=== PATIENT | male | born 1960 | race Caucasian/White ===

== ENCOUNTER → 2020-09-14 10:39 | Outpatient (CLI) | payer OTHER, SELFPAY ==
--- NOTE | 2020-09-14 | DI.RAD.S_ITS ---
PROCEDURE: XR THORACIC SPINE 3V INDICATIONS: Thoracogenic scoliosis, thoracic region TECHNIQUE: 3 views of the thoracic spine were acquired. COMPARISON: None. FINDINGS: Bones: No fracture. Multilevel degenerative endplate sclerosis and spurring. Diffuse facet arthropathy. Soft tissues: No paravertebral stripe thickening. IMPRESSION: Diffuse discogenic changes. Dictated by: Jonah Gandhi M.D. on 09/14/2020 at 11:46 Approved by: Jonah Gandhi M.D. on 09/14/2020 at 11:49
== END ==
PROVIDERS: Family Provider Family Medicine; Referring Provider Family Medicine; Visit Provider Family Medicine
DX: R07.81 Pleurodynia (principal); M41.34 Thoracogenic scoliosis, thoracic region; M47.814 Spondylosis without myelopathy or radiculopathy, thoracic region
CPT/HCPCS: 72072

== ENCOUNTER → 2021-04-10 14:39 | Outpatient (CLI) | payer OTHER, SELFPAY ==
--- NOTE | 2021-04-10 14:40 | DI.NM.S_ITS ---
PROCEDURE: NM EXERCISE TREADMILL NON NUC COMPARISON: None. INDICATIONS: Patient with hypertension, concerns regarding previous abnor FINDINGS: The patient exercised for 7 minutes and 51 seconds, reaching 7.8 METs, MARZENA +11%. 88% of maximum predicted heart rate reached. Appropriate HR and BP response to exercise. No angina symptoms. No ST changes with exercise or during recovery. IMPRESSION: Low risk, normal treadmill ECG only stress test with mildly reduced exercise tolerance (MARZENA +11%) and no angina symptoms. Target heart rate achieved. Dictated by: Onesimo Soto MD on 04/11/2021 at 16:05 Approved by: Onesimo Soto MD on 04/11/2021 at 16:06
[2021-04-10 15:33] LABS: COVID19 -Nasal RAPID Negative (Negative)
== END ==
PROVIDERS: Family Provider Family Medicine; PCP Family Medicine; Referring Provider Family Medicine; Visit Provider Internal Medicine
DX: I11.0 Hypertensive heart disease with heart failure (principal); I10 Essential (primary) hypertension
CPT/HCPCS: 87635; 93017

== ENCOUNTER → 2021-11-29 09:25 | Outpatient (CLI) | payer OTHER, SELFPAY ==
[2021-11-29 18:26] LABS: Add Manual Diff / Slide Review NO; Basophils Absolute Auto 0 /uL (0-100); Basophils Percent Auto 0.7 % (0-2); Eosinophils Absolute Auto 300 /uL (0-450); Eosinophils Percent Auto 4.8 % (2-4); Hematocrit 46.3 % (41-53); Hemoglobin 16.1 g/dL (13.5-17.5); Lymphocytes Absolute Auto 1900 /uL (1100-4500); Lymphocytes Percent Auto 29.6 % (25-40); Mean Corpuscular HGB Conc 34.7 % (30-36); Mean Corpuscular Hemoglobin 31.5 PG (26-34); Mean Corpuscular Volume 90.7 fL (80-100); Monocytes Absolute Auto 600 /uL (0-900); Monocytes Percent Auto 9.8 % (3-14); Neutrophils Absolute Auto 3500 /uL (1500-7000); Neutrophils Percent Auto 55.1 % (50-75); Platelet Count 159 X10^3/uL (150-400); White Blood Cell Count 6.4 X10^3/uL (4.5-11.0)
[2021-11-29 18:34] LABS: Alanine Aminotransferase 20 IU/L (<50); Albumin 4.4 g/dL (3.5-5.0); Albumin Globulin Ratio 1.6 (1.0-2.8); Alkaline Phosphatase 60 U/L (38-126); Aspartate Aminotransferase 28 IU/L (17-59); BUN Creatinine Ratio 19.2 (6-22); Blood Urea Nitrogen 20 mg/dL (9-20); Calcium 9.1 mg/dL (8.4-10.2); Carbon Dioxide 30 mmol/L (22-32); Chloride 102 mmol/L (98-107); Cholesterol 223 mg/dL (140-199); Estimated Glomerular Filt Rate > 60 mL/min (>60); Globulin 2.7 g/dL (1.7-4.1); Glucose 100 mg/dL (70-100); HDL Cholesterol 73 mg/dL (40-60); HEMOLYSIS < 15 (0-50); LDL Cholesterol Calculated 120 mg/dL (<100); Sodium 137 mmol/L (137-145); Total Protein 7.1 g/dL (6.3-8.2); Triglycerides 148 mg/dL (35-150)
[2021-11-29 18:39] LABS: Potassium 5.4 mmol/L (3.4-5.1)
[2021-11-29 19:00] LABS: Prostate Specific Antigen Scrn 0.964 ng/mL (0.1-4.0)
== END ==
PROVIDERS: Family Provider Family Medicine; PCP Family Medicine; Visit Provider Family Medicine
DX: G62.9 Polyneuropathy, unspecified (principal); I10 Essential (primary) hypertension; Z12.5 Encounter for screening for malignant neoplasm of prostate
CPT/HCPCS: 80053; 80061; 85025; G0103

== ENCOUNTER → 2023-10-01 08:35 | Outpatient (CLI) | payer OTHER, SELFPAY ==
[2023-10-01 09:45] LABS: Add Manual Diff / Slide Review NO; Basophils Absolute Auto 100 /uL (0-100); Basophils Percent Auto 1.1 % (0-2); Eosinophils Absolute Auto 300 /uL (0-450); Eosinophils Percent Auto 5.2 % (2-4); Hematocrit 46.3 % (41-53); Hemoglobin 15.8 g/dL (13.5-17.5); Lymphocytes Absolute Auto 2200 /uL (1100-4500); Mean Corpuscular HGB Conc 34.2 % (30-36); Mean Corpuscular Hemoglobin 31.7 PG (26-34); Mean Corpuscular Volume 92.9 fL (80-100); Monocytes Absolute Auto 700 /uL (0-900); Monocytes Percent Auto 10.7 % (3-14); Neutrophils Absolute Auto 3300 /uL (1500-7000); Platelet Count 173 X10^3/uL (150-400); Red Blood Cell Count 4.98 X10^6/uL (4.5-5.9); Red Cell Distribution Width 13.5 % (11.6-14.8); White Blood Cell Count 6.6 X10^3/uL (4.5-11.0)
[2023-10-01 10:13] LABS: HEMOLYSIS < 15 (0-50)
[2023-10-01 10:25] LABS: Alanine Aminotransferase 28 IU/L (<50); Albumin 4.1 g/dL (3.5-5.0); Albumin Globulin Ratio 1.6 (1.0-2.8); Alkaline Phosphatase 55 U/L (38-126); Amylase 65 U/L (30-110); Aspartate Aminotransferase 26 IU/L (17-59); BUN Creatinine Ratio 14.5 (6-22); Bilirubin Total 1.1 mg/dL (0.2-1.3); Blood Urea Nitrogen 16 mg/dL (9-20); Calcium 9.5 mg/dL (8.4-10.2); Carbon Dioxide 31 mmol/L (22-32); Chloride 107 mmol/L (98-107); Estimated Glomerular Filt Rate > 60 mL/min (>60); Globulin 2.5 g/dL (1.7-4.1); Glucose 83 mg/dL (80-110); Lipase 174 U/L (23-300); Potassium 4.5 mmol/L (3.4-5.1); Sodium 141 mmol/L (137-145); Total Protein 6.6 g/dL (6.3-8.2)
[2023-10-01 11:25] LABS: Prostate Specific Antigen Scrn 0.989 ng/mL (0.1-4.0)
[2023-10-01 22:50] LABS: Hep C Virus Ab w/Reflex Quant NEGATIVE s/c (NEGATIVE)
== END ==
PROVIDERS: Family Provider Family Medicine; PCP Physician Assistant Medical; Referring Provider Physician Assistant; Visit Provider Physician Assistant
DX: Z12.5 Encounter for screening for malignant neoplasm of prostate (principal); Z11.59 Encounter for screening for other viral diseases; R10.11 Right upper quadrant pain; R10.13 Epigastric pain; K21.00 Gastro-esophageal reflux disease with esophagitis, without bleeding; R14.0 Abdominal distension (gaseous)
CPT/HCPCS: 36415; 80053; 82150; 83690; 85025; 86803; G0103

== ENCOUNTER → 2023-10-12 11:24 | Outpatient (CLI) | payer OTHER, SELFPAY ==
--- NOTE | 2023-10-12 11:27 | DI.CT.S_ITS ---
PROCEDURE: CT ABDOMEN PELVIS W CON INDICATIONS: abdominal pain and bloating TECHNIQUE: After the administration of intravenous contrast, axial sections acquired from the lung bases to the pubic symphysis. Coronal and sagittal reformats were performed. For radiation dose reduction, the following was used: automated exposure control, adjustment of mA and/or kV according to patient size. COMPARISON: None. FINDINGS: Image quality: Diagnostic. Lower Chest: Right lower lung granuloma. No pleural effusions. Heart size within normal limits. ABDOMEN: Liver: No solid mass. Gallbladder: Contracted. Biliary ducts: No biliary dilation. Pancreas: No ductal dilation. Spleen: Size is within normal limits. Adrenal Glands: No adrenal nodules. Kidneys and Ureters: Symmetric enhancement. No nephrolithiasis or hydronephrosis. No hydroureter. Stomach and Bowel: Stomach and small bowel loops are normal caliber. Normal appendix. Normal quantity of colonic stool. No suspicious colon wall thickening or inflammation. No suspicious wall thickening or bowel obstruction. Peritoneum: No abnormal intraperitoneal fluid. No free air. Ventral Wall: No significant ventral hernia. Abdominal Nodes: No retroperitoneal or mesenteric adenopathy by size criteria. Vessels: Aorta and inferior vena cava are normal in size. PELVIS: Pelvic Organs: Unremarkable. Bladder: No bladder wall thickening, accounting for underdistention. Pelvic Nodes: No enlarged lymph nodes. Miscellaneous: No inguinal hernias are seen. Bones: No aggressive osseous abnormality. IMPRESSION: No acute process. Dictated by: Ginger Quach M.D. on 10/12/2023 at 14:40 Approved by: Ginger Quach M.D. on 10/12/2023 at 14:45
== END ==
LOC: CT 11:25
PROVIDERS: Family Provider Family Medicine; PCP Physician Assistant Medical; Referring Provider Physician Assistant; Visit Provider Physician Assistant
DX: R14.0 Abdominal distension (gaseous) (principal); R10.13 Epigastric pain; R10.11 Right upper quadrant pain; R19.8 Other specified symptoms and signs involving the digestive system and abdomen
CPT/HCPCS: 74177; Q9967

== ENCOUNTER → 2023-12-15 09:37 | Outpatient (CLI) | payer OTHER, SELFPAY ==
[2023-12-15 19:11] LABS: Add Manual Diff / Slide Review NO; Basophils Absolute Auto 0 /uL (0-100); Basophils Percent Auto 0.8 % (0-2); Eosinophils Absolute Auto 300 /uL (0-450); Eosinophils Percent Auto 5.4 % (2-4); Hemoglobin 16.3 g/dL (13.5-17.5); Lymphocytes Absolute Auto 1900 /uL (1100-4500); Lymphocytes Percent Auto 31.2 % (25-40); Mean Corpuscular HGB Conc 34.6 % (30-36); Mean Corpuscular Hemoglobin 31.8 PG (26-34); Mean Corpuscular Volume 91.9 fL (80-100); Monocytes Absolute Auto 600 /uL (0-900); Monocytes Percent Auto 10.2 % (3-14); Neutrophils Absolute Auto 3100 /uL (1500-7000); Neutrophils Percent Auto 52.4 % (50-75); Platelet Count 167 X10^3/uL (150-400); Red Blood Cell Count 5.11 X10^6/uL (4.5-5.9); Red Cell Distribution Width 13.9 % (11.6-14.8)
[2023-12-15 19:21] LABS: Alanine Aminotransferase 28 IU/L (<50); Albumin 4.2 g/dL (3.5-5.0); Albumin Globulin Ratio 1.6 (1.0-2.8); Alkaline Phosphatase 66 U/L (38-126); Aspartate Aminotransferase 37 IU/L (17-59); BUN Creatinine Ratio 17.2 (6-22); Bilirubin Total 1.6 mg/dL (0.2-1.3); Blood Urea Nitrogen 15 mg/dL (9-20); C-Reactive Protein Quant < 0.5 mg/dL (<1.0); Calcium 8.8 mg/dL (8.4-10.2); Carbon Dioxide 26 mmol/L (22-32); Chloride 107 mmol/L (98-107); Estimated Glomerular Filt Rate > 60 mL/min (>60); Globulin 2.6 g/dL (1.7-4.1); Glucose 90 mg/dL (80-110); HEMOLYSIS < 15 (0-50); Potassium 4.6 mmol/L (3.4-5.1); Sodium 137 mmol/L (137-145); Total Protein 6.8 g/dL (6.3-8.2); Uric Acid 6.5 mg/dL (3.5-8.5)
[2023-12-15 19:27] LABS: Rheumatoid Factor < 8.6 IU/mL (<12.0)
[2023-12-15 19:32] LABS: Erythrocyte Sedimentation Rate 2 MM/HR (0-15)
[2023-12-15 20:29] LABS: Vitamin B12 276 pg/mL (239-931)
[2023-12-20 16:07] LABS: ANA Screen, IFA Negative (.)
== END ==
PROVIDERS: Family Provider Family Medicine; PCP Physician Assistant Medical; Visit Provider Physician Assistant Medical
DX: M19.90 Unspecified osteoarthritis, unspecified site (principal); R07.81 Pleurodynia; I10 Essential (primary) hypertension; S23.41XA Sprain of ribs, initial encounter; R53.83 Other fatigue
CPT/HCPCS: 80053; 82607; 84550; 85025; 85651; 86038; 86140; 86430

== ENCOUNTER → 2023-12-18 09:32 | Outpatient (CLI) | payer OTHER, SELFPAY ==
[2023-12-18 18:38] LABS: Cholesterol 210 mg/dL (140-199); HDL Cholesterol 64 mg/dL (40-60); LDL Cholesterol Calculated 118 mg/dL (<100); Triglycerides 140 mg/dL (35-150)
[2023-12-18 19:10] LABS: TSH w/ Reflex to FT4 2.65 uIU/mL (0.47-4.68)
== END ==
PROVIDERS: Family Provider Family Medicine; PCP Physician Assistant Medical; Visit Provider Physician Assistant Medical
DX: Z13.220 Encounter for screening for lipoid disorders (principal); Z12.11 Encounter for screening for malignant neoplasm of colon; Z12.5 Encounter for screening for malignant neoplasm of prostate; M54.9 Dorsalgia, unspecified; G89.29 Other chronic pain; G62.9 Polyneuropathy, unspecified; I10 Essential (primary) hypertension
CPT/HCPCS: 80061; 84443

== ENCOUNTER → 2024-04-21 12:13 | Outpatient (CLI) | payer OTHER, SELFPAY ==
--- NOTE | 2024-04-21 12:50 | DI.ECHO.S_ITS ---
[facility] : : [address] : : [place] : : [id number] : : Phone: [phone] Echocardiogram Report + + :Name: KAETON GUDINO Study Date: 04/21/2024 Height: 70 in : :[facility] ReadingLocation: Weight: 210 lb : : Gender: Male BSA: 2.1 m2 : :: 1960 Age: 63 yrs BP: 144/93 mmHg: :Reason For Study: CHEST PAIN : :Ordering Physician: MAX, : :TANIYA Performed By: Margaux Massey : :Referring: TANIYA SANTANA : + + Interpretation Summary 1. Distal limited study. 2. The left ventricular contractility is normal. Estimated ejection fraction is greater than 60% with no segmental wall motion abnormalities. No LVH. Normal diastolic function. 3. The right ventricular contractility is normal. 4. Trace to mild aortic insufficiency. 5. No obvious intracardiac shunts. 6. No obvious ventricular masses nor thrombi. 7. No hemodynamically significant pericardial effusion. 8. Low right-sided filling pressures. Conclusion: Normal biventricular function with no significant valvular abnormalities. Procedure: Images were not obtained from all of the standard acoustic windows due to the limited scope of the study. The study quality was technically adequate. There is no prior echocardiogram noted for this patient. The patient was in sinus bradycardia with heart rates between 53-57 bpm during the exam. Left Ventricle: The left ventricle is normal in size and wall thickness. The ejection fraction is estimated to be 60-65%. Diastolic parameters suggest probable normal left ventricular diastolic function and normal filling pressures. Atria: The left atrial size is normal. Right atrial size is normal. Aortic Valve: The aortic valve is trileaflet. There is no aortic valve stenosis. There is mild aortic regurgitation. Tricuspid Valve: The tricuspid valve is normal in structure and function. There is trace tricuspid regurgitation. Pulmonary artery pressures cannot be estimated because of the lack of a measurable TR jet velocity. Great Vessels: The IVC is of normal diameter and collapses greater than 50% with a sniff. This suggests a low right atrial pressure of 3 mm Hg. Pericardium/ Pleura There is no pericardial effusion. There is no pleural effusion. MMode/2D Measurements & Calculations LVIDd: 4.9 cm LVOT diam: 2.0 cm LVIDs: 3.0 cm FS: 38.5 % EPSS: 0.50 cm IVSd: 0.74 cm LVPWd: 0.80 cm LV singer. diameter/BSA (cm/m^2): 2.3 LV sys. diameter/BSA (cm/m^2): 1.4 LA A2 area: 22.8 cm2 RA long axis: 5.7 cm LA A4 area: 20.6 cm2 RA area: 18.7 cm2 LA length (vol): 5.8 cm RA vol: 52.5 ml LA vol: 68.7 ml RA : 24.6 ml/m2 LA vol index: 32.2 ml/m2 IVC diam: 1.8 cm Doppler Measurements & Calculations Ao V2 max: 153.4 cm/sec LVOT Max Yariel: 104.0 cm/sec Ao V2 mean: 106.5 cm/sec LV V1 max P.3 mmHg Ao max P.4 mmHg LV V1 VTI: 24.0 cm Ao mean P.0 mmHg KOBE(I,D): 2.1 cm2 Ao V2 VTI: 35.7 cm KOBE(V,D): 2.1 cm2 sev ratio: 0.67 KOBE indexed to BSA (cm^2/m^2): 0.98 AI P1/2t: 791.0 msec AI dec slope: 171.4 cm/sec2 MV E max yariel: 66.9 cm/sec SV(LVOT): 74.8 ml MV A max yariel: 71.4 cm/sec MV E/A: 0.94 Med Peak E' Yariel: 10.1 cm/sec E/E' med: 6.6 Lat Peak E' Yariel: 13.4 cm/sec E/E' lat: 5.0 E/e' average: 5.8 MV dec time: 0.20 sec Reading Physician:
== END ==
PROVIDERS: Family Provider Family Medicine; PCP Physician Assistant Medical; Referring Provider Physician Assistant Medical; Visit Provider Physician Assistant Medical
DX: I35.1 Nonrheumatic aortic (valve) insufficiency (principal); R07.9 Chest pain, unspecified
CPT/HCPCS: 93307

== ENCOUNTER → 2025-02-08 10:50 | Outpatient (CLI) | payer OTHER, SELFPAY ==
[2025-02-08 19:45] LABS: Add Manual Diff / Slide Review NO; Hematocrit 44.4 % (41-53); Hemoglobin 15.2 g/dL (13.5-17.5); Lymphocytes Absolute Auto 1900 /uL (1100-4500); Mean Corpuscular HGB Conc 34.1 % (30-36); Mean Corpuscular Hemoglobin 32.0 PG (26-34); Mean Corpuscular Volume 93.8 fL (80-100); Platelet Count 164 X10^3/uL (150-400)
[2025-02-08 20:05] LABS: Alanine Aminotransferase 26 IU/L (<50); Albumin 4.1 g/dL (3.5-5.0); Albumin Globulin Ratio 1.6 (1.0-2.8); Alkaline Phosphatase 64 U/L (38-126); Blood Urea Nitrogen 18 mg/dL (9-20); Calcium 8.8 mg/dL (8.4-10.2); Carbon Dioxide 24 mmol/L (22-32); Chloride 103 mmol/L (98-107); Cholesterol 168 mg/dL (140-199); Estimated Glomerular Filt Rate > 60 mL/min (>60); Globulin 2.5 g/dL (1.7-4.1); Glucose 99 mg/dL (70-99); HDL Cholesterol 64 mg/dL (40-60); HEMOLYSIS 23 (0-50); Potassium 4.8 mmol/L (3.4-5.1); Sodium 135 mmol/L (137-145); Total Protein 6.6 g/dL (6.3-8.2); Triglycerides 124 mg/dL (35-150)
== END ==
PROVIDERS: PCP Physician Assistant Medical; Visit Provider Physician Assistant Medical
DX: Z12.5 Encounter for screening for malignant neoplasm of prostate (principal); Z12.11 Encounter for screening for malignant neoplasm of colon; Z13.220 Encounter for screening for lipoid disorders; G62.9 Polyneuropathy, unspecified; I10 Essential (primary) hypertension
CPT/HCPCS: 80053; 80061; 85025; G0103

== ENCOUNTER → 2025-03-09 11:29 | Outpatient (CLI) | payer OTHER, SELFPAY ==
[2025-03-11 19:11] LABS: Alder IgE <0.10 kU/L (Class 0); Box Elder IgE 0.25 kU/L (Class 0/I); Codfish Allergy IgE < 0.10 kU/L (Class 0); D farinae IgE <0.10 kU/L (Class 0); D pteronyssinus IgE <0.10 kU/L (Class 0); Hazelnut IgE <0.10 kU/L (Class 0); IgE Aureobasidi pullulans <0.10 kU/L (Class 0); IgE Candida albicans <0.10 kU/L (Class 0); IgE Cladosporium herbarum <0.10 kU/L (Class 0); IgE Epicoccum purpur <0.10 kU/L (Class 0); IgE Fusarium proliferatum <0.10 kU/L (Class 0); IgE Mucor racemosus <0.10 kU/L (Class 0); IgE Penicillium chrysogen <0.10 kU/L (Class 0); IgE Phoma betae <0.10 kU/L (Class 0); IgE Setomelanomma rostrat <0.10 kU/L (Class 0); IgE Stemphylium herbarum <0.10 kU/L (Class 0); Mouse Urine Proteins IgE <0.10 kU/L (Class 0); Pigweed, Common IgE 0.36 kU/L (Class I); Ragweed, Short 0.23 kU/L (Class 0/I); Salmon Allergy IgE < 0.10 kU/L (Class 0); Scallop Allergy IgE 0.11 kU/L (Class 0/I); Sesame seed Allergy IgE 0.22 kU/L (Class 0/I); Tuna Allergy IgE < 0.10 kU/L (Class 0); Walnut Allery IgE 0.15 kU/L (Class 0/I); Wheat Allergy IgE 0.34 kU/L (Class I)
== END ==
PROVIDERS: PCP Physician Assistant Medical; Referring Provider Physician Assistant Medical; Visit Provider Physician Assistant Medical
DX: R89.8 Other abnormal findings in specimens from other organs, systems and tissues (principal)
CPT/HCPCS: 36415; 82785; 86003